=== PATIENT | male | born 1955 | race Caucasian/White ===

== ENCOUNTER 2016-04-17 11:09 | Emergency (ER) | payer BC ==
[2016-04-17 11:14] VITALS: TEMP 97.6; BMI 43.9
[2016-04-17] MEDS ORDERED: SODIUM CHLORIDE 0.9% 3 ML FLUSH FLUSH PRN (12:03)
[2016-04-17] MEDS ORDERED: NS 1,000 ML IV ONE ×2 (12:04)
[2016-04-17] MEDS ORDERED: ONDANSETRON HCL 4 MG/2 ML VIAL IV ONE (12:04)
[2016-04-17] MEDS ORDERED: FENTANYL 100 MCG/2 ML VIAL IV ONE ×2 (12:04→12:50)
--- NOTE | 2016-04-17 12:07 | EDPRACDOC ---
- General Information Chief Complaint: Abdominal Pain Stated Complaint: ABDOMINAL PAIN Time Seen by Provider: 04/17/16 11:55 Information Source: Patient Mode Of Arrival: Car Home Medications: Home Medications Paroxetine [Paxil] 30 mg PO BID 03/25/12 Ramipril [Altace] 10 mg PO BID 03/25/12 Metformin HCl 1,000 mg PO BID 06/13/15 Albuterol Sulfate [Ventolin Hfa] 1 - 2 puff INH Q4H PRN 04/17/16 Dicyclomine HCl [Bentyl] 20 mg PO Q6H #20 tablet 04/17/16 Ketoprofen 75 mg PO TID #30 capsule 04/17/16 Ondansetron [Zofran Odt] 4 mg PO Q6H #20 tab.rapdis 04/17/16 Oxycodone HCl/Acetaminophen [Percocet 10-325 mg Tablet] 1 each PO Q4H PRN Allergies/Adverse Reactions: Allergies Allergy/AdvReac Type Severity Reaction Status Date / Time morphine Allergy Mild Itching Verified 04/17/16 11:11 - History of Present Illness Onset: yesterday HPI: PT PRESENTS TO ED WITH GENERALIZED ABD PAIN FEELS TIGHT AND IS HURTING MORE THAN NORMAL. STATES HAS HAD MULTIPLE SURGERIES SINCE 2000 AFTER HAVING COLON CANCER WITH PARTIAL REMOVAL THEN COLOSTOMY, 1 YEAR LATER COLOSTOMY TAKEDOWN THEN HAD HERNIA WITH MESH PLACED AND HAD MULTIPLE COMPLICATIONS AND HAD MESH REMOVED AT [place]. PT STATES NO BM SINCE YESTERDAY AND NORMALLY GOES 8-15TIMES PER DAY. Pain Location: Reports: Diffuse Pain Context: Reports: Spontaneous Pain Severity: Moderate Pain Quality: Reports: Aching, Sharp, Stabbing Pain Radiation: Reports: No Radiation Adult Abdominal History: Reports: Abdominal Surgery, Bowel Obstruction Modifying Factors: improves with: Movement Associated Signs & Symptoms: Reports: Nausea, Other (DECREASED BOWEL MOVEMENT) Oral Intake: Decreased Urinary Output: Normal ED Past Medical History - History Reviewed Yes Nurses notes reviewed and agree except as marked Travel Outside of [place] in the Last 3 Months?: No - Patient Medical History Cardiac History: Reports: Hypertension, Cardiac Catheterization (2002), Hypercholesterolemia Respiratory History: Reports: COPD GI/ History: Reports: Kidney (Renal Surgery), Kidney Stones, Gastroesophageal Reflux, Ulcer (gastric) Psychological History: Reports: Anxiety. Denies: Depression, Substance Use Disorder Systemic History: Reports: Cancer (COLON CANCER), Anemia (iron defic.), Diabetes Additional Past Medical History: CHRONIC PAIN Surgical History: Reports: Cholecystectomy, Cardiac Catheterization (2002), Hernia Surgery (repaire incisional hernia, infected mesh resected and repaired) , Tonsillectomy/Adnoidectomy, Other (COLON RSXN, COLOSTOMY AND TAKE DOWN, MULT ABD SX, KNEE SX) Date of Last Radiation Treatment: NA Date of Last Chemotherapy Date: 2001 - Family Medical History Reports: Hypertension (father), Diabetes (father), Cancer (BREAST cancer in mother, sister- ovarian cancer.), Respiratory Disorders (COPD/asbestosis-Dad) - Social Medical History Smoking Status: Heavy tobacco smoker (5 or more cigarettes/day or daily pipe/ cigar) Social History: Denies: Substance Use Disorder ETOH: None Substance Abuse: None Lives With: Other Lives In: Home EDM Review of Systems - Review of Systems ROS Negative Except as Marked: Yes All systems reviewed and were negative except as marked Constitutional: No Symptoms Reported. negative: Fever, Chills, Weakness, Fatigue, Loss of Appetite Eyes: No Symptoms Reported. negative: Redness, Blurred Vision, Double Vision, Discharge, Pain, Light Sensitive, Photophobia Ears: No Symptoms Reported. negative: Pain, Hearing Loss, Drainage, Ear Pulling Throat: No Symptoms Reported. negative: Pain, Swelling Nose: No Symptoms Reported. negative: Congestion, Bleeding, Discharge, Injection, Swelling, Deformity, Ecchymosis, Tender, Abrasion, Laceration Mouth: No Symptoms Reported. negative: Pain, Drooling Respiratory: No Symptoms Reported. negative: Cough, Brassy Cough, Barky Cough, Shortness of Breath, Wheezing, Hemoptysis Cardiovascular: No Symptoms Reported. negative: Chest Pain, Palpitations, Syncope, Edema, Orthopnea, PND, Skin Mottling, Cyanosis Gastrointestinal: Constipation, Nausea, Pain, Other (NO BM SINCE YESTERDAY). negative: Diarrhea, Formula Intolerance, Melena, Vomiting Genitourinary: No Symptoms Reported. negative: Dysuria, Hematuria, Frequency, Discharge, Bleeding, Testicular Pain, Neurological: No Symptoms Reported. negative: Headache, Dizziness, Seizure, Numbness, Weakness, Speech Difficulty, Gait Difficulty Musculoskeletal: No Symptoms Reported. negative: Neck, Chestwall, Ribs, Back, Shoulder, Arm, Elbow, Forearm, Wrist, Hand, Pelvis, Hip, Femur, Knee, Leg, Ankle , Foot Integumentary: No Symptoms Reported. negative: Itching, Rash, Bruising, Wound Allergic/Immunologic: No Symptoms Reported. negative: Hives, Itching Hematologic: No Symptoms Reported. negative: Lymphadenopathy, Easy Bruising, Easy Bleeding Endocrine: No Symptoms Reported. negative: Weight Gain, Weight Loss Psychiatric: No Symptoms Reported. negative: Anxiety, Depression, Hallucinations, Insomnia, Suicidal - Physical Exam Constitutional: Alert (Awake), No apparent distress Oriented to: Time, Person, Place Last recorded Vital Signs: Last Vital Signs Temp 97.6 F 04/17/16 11:11 Pulse 61 04/17/16 12:13 Resp 18 04/17/16 12:13 BP 139/75 04/17/16 12:13 Pulse Ox 92 04/17/16 12:24 Oxygen Pulse Oxygen Saturation 92 O2 Device Nasal Cannula Oxygen Flow Rate 2 Fraction of Inspired Oxygen ( FIO2) - HEENT Head: Normal ( normocephalic) Eye Exam: Normal (PERRL, EOMI, Sclera white) Oropharynx: Normal (Pharynx:Moist without exudate,Gums-no swelling) Tympanic Membrane: Normal ENT EAC: Normal TMJ: Normal Nose: No Symptoms Reported (septum midline) Neck: Normal (FROM, trachea at midline) - Respiratory/Cardiovascular Respiratory: Normal - CTA (BBS clear to auscultation without adventitious sounds ) Cardiovascular: Normal (RRR without murmur, gallop or rub) - GI Auscultation: Increased (LLQ) Palpation: Normal (Soft,No rebound or guarding, non distended) Tenderness: Diffuse, Mild, Moderate Mishra's Sign: Negative - Bladder: Normal - Musculoskeletal Back: Normal (Non-Tender) Extremities: Normal (Normal tone, Pulses 2+ No cyanosis or edema, FROM) - Integumentary Skin: Normal, Warm, Dry Lymphatics: Normal (no adenopathy) - Neurologic Memory Impaired: Normal Motor Function: Normal (Normal tone, Pulses 2+ No cyanosis or edema, FROM) Cranial Nerve: Normal (CN II-X11 intact sensation, strength 5/5) Cerebellar: Normal Mood Description: Normal Perception: Normal - Differential Diagnosis Bowel Obstruction, Constipation, Diverticulitis, Pancreatitis, Other (CHRONIC ABDOMINAL PAIN) - Results 04/17/16 11:55 04/17/16 11:55 WBC 12.1 xk/uL (3.8-10.8) H 04/17/16 11:55 RBC 5.83 xM/uL (4.70-6.10) 04/17/16 11:55 Hgb 15.6 g/dL (14.0-18.0) 04/17/16 11:55 Hct 47.2 % (42-52) 04/17/16 11:55 MCV 81 fL (80-94) 04/17/16 11:55 MCH 26.7 pg (27-32) L 04/17/16 11:55 MCHC 33.0 g/dl (33-36) 04/17/16 11:55 RDW 17.8 % (11.5-14.5) H 04/17/16 11:55 Plt Count 250 xk/uL (130-400) 04/17/16 11:55 MPV 7.9 fL (7.4-10.4) 04/17/16 11:55 Neut % (Auto) 69.5 % (45-76) 04/17/16 11:55 Lymph % (Auto) 22.3 % (17-44) 04/17/16 11:55 [place] % (Auto) 7.1 % (3-10) 04/17/16 11:55 Eos % (Auto) 0.7 % (0-5) 04/17/16 11:55 Baso % (Auto) 0.4 % (0-2) 04/17/16 11:55 Absolute Neuts (auto) 8.35 xk/uL (1.7-8.2) H 04/17/16 11:55 Absolute Lymphs (auto) 2.66 xk/uL (0.65-4.75) 04/17/16 11:55 Sodium 139 mEq/L (137-146) 04/17/16 11:55 Potassium 3.9 mEq/L (3.5-5.1) 04/17/16 11:55 Chloride 101 mEq/L (98-107) 04/17/16 11:55 Carbon Dioxide 27 mMOL/L (22-33) 04/17/16 11:55 Anion Gap 15 mEq/L (8-16) 04/17/16 11:55 BUN 13 MG/DL (9-20) 04/17/16 11:55 Creatinine 0.70 MG/DL (0.66-1.25) 04/17/16 11:55 Estimated GFR (MDRD) > 60 mL/min (>=60) 04/17/16 11:55 Glucose 205 mg/dL (70-99) H 04/17/16 11:55 Calculated Osmolality 274 MOs/Kg (270-290) 04/17/16 11:55 Calcium 9.7 MG/DL (8.4-10.2) 04/17/16 11:55 Total Bilirubin 1.6 MG/DL (0.2-1.3) H 04/17/16 11:55 AST 72 IU/L (17-59) H 04/17/16 11:55 ALT 62 IU/L (21-72) 04/17/16 11:55 Alkaline Phosphatase 78 IU/L (50-160) 04/17/16 11:55 Total Protein 7.9 G/DL (6.3-8.2) 04/17/16 11:55 Albumin 4.5 G/DL (3.5-5.0) 04/17/16 11:55 Lipase 68 U/L (23-300) 04/17/16 11:55 Urine Color Yellow 04/17/16 13:25 Urine Clarity Clear 04/17/16 13:25 Urine pH 5.0 (5.0-8.0) 04/17/16 13:25 Ur Specific [place] 1.025 (1.003-1.035) 04/17/16 13:25 Urine Protein 1+ (NEG/TRACE) H 04/17/16 13:25 Urine Glucose (UA) 1+ (NEGATIVE) 04/17/16 13:25 Urine Ketones Neg (NEGATIVE) 04/17/16 13:25 Urine Occult Blood Neg (NEG/TRACE) 04/17/16 13:25 Urine Nitrite Neg (NEGATIVE) 04/17/16 13:25 Urine Bilirubin Neg (NEGATIVE) 04/17/16 13:25 Urine Urobilinogen <2.0 MG/DL (0-1) 04/17/16 13:25 Ur Leukocyte Esterase Neg (NEGATIVE) 04/17/16 13:25 Urine RBC 0-2 (0-2) 04/17/16 13:25 Urine WBC 0-2 (0-2) 04/17/16 13:25 Ur Epithelial Cells Occ 04/17/16 13:25 Amorphous Sediment Occ 04/17/16 13:25 Urine Bacteria Few (NEG/FEW) 04/17/16 13:25 Hyaline Casts 5-10 (0-2) H 04/17/16 13:25 Urine Mucus Large (NEG/OCC) 04/17/16 13:25 Lab Results 04/17/16 04/17/16 04/17/16 13:25 11:55 11:55 WBC 12.1 H RBC 5.83 Hgb 15.6 Hct 47.2 MCV 81 MCH 26.7 L MCHC 33.0 RDW 17.8 H Plt Count 250 MPV 7.9 Neut % (Auto) 69.5 Lymph % (Auto) 22.3 [place] % (Auto) 7.1 Eos % (Auto) 0.7 Baso % (Auto) 0.4 Absolute Neuts (auto) 8.35 H Absolute Lymphs (auto) 2.66 Sodium 139 Potassium 3.9 Chloride 101 Carbon Dioxide 27 Anion Gap 15 BUN 13 Creatinine 0.70 Estimated GFR (MDRD) > 60 Glucose 205 H Calculated Osmolality 274 Calcium 9.7 Total Bilirubin 1.6 H AST 72 H ALT 62 Alkaline Phosphatase 78 Total Protein 7.9 Albumin 4.5 Lipase 68 Urine Color Yellow Urine Clarity Clear Urine pH 5.0 Ur Specific [place] 1.025 Urine Protein 1+ H Urine Glucose (UA) 1+ Urine Ketones Neg Urine Occult Blood Neg Urine Nitrite Neg Urine Bilirubin Neg Urine Urobilinogen <2.0 Ur Leukocyte Esterase Neg Urine RBC 0-2 Urine WBC 0-2 Ur Epithelial Cells Occ Amorphous Sediment Occ Urine Bacteria Few Hyaline Casts 5-10 H Urine Mucus Large - Diagnostic Imaging CT ABD/PEL Image interpreted by: Radiologist 04/17/16 14:35 Final Report CLINICAL DATA: Abdominal pain with nausea for 1 day. History of small bowel obstruction. History of previous appendectomy, cholecystectomy and colon resection. History of colon cancer in 2000. EXAM: CT ABDOMEN AND PELVIS WITH CONTRAST TECHNIQUE: Multidetector CT imaging of the abdomen and pelvis was performed using the standard protocol following bolus administration of intravenous contrast. CONTRAST: 100 mL of Isovue 370 intravenous contrast COMPARISON: 12/20/2015 FINDINGS: Lung bases: Heart is top-normal size. The prominent posterior subpleural fat. Mild subsegmental atelectasis at the dependent lung bases. Liver: Multiple low-density liver lesions. Two largest lying in the anterior left lobe, the largest measuring 2.3 cm having near water attenuation, consistent with cysts. Other sub cm lesions may also reflect cysts but are nonspecific. These are stable from the prior exam. No new liver abnormalities. Gallbladder surgically absent. There is chronic dilation of common bile duct with maximum 16 mm with distal tapering. This is stable. Spleen and pancreas: Unremarkable. Adrenal glands: 18 mm relatively hyper attenuating right adrenal mass without significant change from the prior study. Normal left adrenal gland. Kidneys, ureters, bladder: Unremarkable. Lymph nodes: No pathologically enlarged lymph nodes. Ascites: None. Abdominal wall: Wide diastases of the rectus abdominus muscles. The anterior peritoneal and and underlying bowel protrudes between the rectus abdominus muscles, with no convincing hernia to the fascia. This is similar to the prior study. Gastrointestinal: Postsurgical changes are stable. There are small bowel anastomosis donte in the central abdomen. An anastomosis between the distal small bowel and remaining distal colon is seen in the lower central abdomen. There is no evidence of bowel obstruction. There is no bowel wall thickening or inflammatory changes. Musculoskeletal: Degenerative changes noted throughout the visualized spine. No osteoblastic or osteolytic lesions. The IMPRESSION: 1. No acute findings within the abdomen pelvis. 2. Multiple bowel anastomosis donte are noted. Remaining distal colon connects with the distal small bowel in the low central abdomen. There is no evidence of bowel obstruction or inflammation. The appearance is similar to the prior exam. 3. Wide diastases of the rectus abdominus muscles. The overlying fascia/hernia mesh appears intact. 4. Multiple small low-density liver lesions similar to the prior study. These were also present on a more remote exam from January 2014. These are therefore presumed to reflect benign cysts. 5. Stable chronic dilation of common bile duct. 6. Benign right adrenal mass, also stable since 2014 exam. Decision Time to Discharge: 14:35 - Departure Disposition: Home Condition: Stable Final Diagnosis: Abdominal pain Instructions: Acute Abdominal Pain (ED) Education/Counseling Given To: Patient Education/Counseling Given Regarding: Diagnosis, Treatment, Prognosis, Follow Up Referrals: Dashawn Morrissey MD [Primary Care Provider] - One Week Prescriptions: New Dicyclomine HCl [Bentyl] 20 mg PO Q6H #20 tablet Ketoprofen 75 mg PO TID #30 capsule Ondansetron [Zofran Odt] 4 mg PO Q6H #20 tab.rapdis No Action Ramipril [Altace] 10 mg PO BID Paroxetine [Paxil] 30 mg PO BID Metformin HCl 1,000 mg PO BID Oxycodone HCl/Acetaminophen [Percocet 10-325 mg Tablet] 1 each PO Q4H PRN PRN Reason: Pain Albuterol Sulfate [Ventolin Hfa] 1 - 2 puff INH Q4H PRN PRN Reason: SHORTNESS OF BREATH Additional Instructions: FOLLOW UP WITH YOUR DOCTOR IF SYMPTOMS PERSIST, RETURN FOR WORSE OR DIFFERENT SYMPTOMS.
[2016-04-17 12:40] LABS: AUTOMATED BASOPHIL 0.4 % (0-2); AUTOMATED EOSINOPHIL 0.7 % (0-5); AUTOMATED LYMPH 22.3 % (17-44); AUTOMATED MONOCYTE 7.1 % (3-10); AUTOMATED NEUTROPHIL 69.5 % (45-76); MPV 7.9 fL (7.4-10.4)
[2016-04-17] MEDS ORDERED: FENTANYL 100 MCG/2 ML VIAL IV PRN (12:50)
[2016-04-17] MEDS ORDERED: HYDROmorphone 1 MG INJECTION IV PRN (12:55)
[2016-04-17] MEDS ORDERED: HYDROmorphone 1 MG INJECTION IV ONE (12:55)
[2016-04-17 12:56] LABS: BLOOD UREA NITROGEN 13 MG/DL (9-20); CALCIUM 9.7 MG/DL (8.4-10.2); CALCULATED OSMOLALITY 274 MOs/Kg (270-290); CHLORIDE 101 mEq/L (98-107); GLUCOSE 205 mg/dL (70-99); SODIUM LEVEL 139 mEq/L (137-146); TOTAL PROTEIN 7.9 G/DL (6.3-8.2)
[2016-04-17] MEDS ORDERED: Pharmacy Review for Metformin - IV Contrast Given SCH (13:00)
[2016-04-17 13:43] LABS: AMORPHOUS OCC; LEUKOCYTES/URINE NEG (NEGATIVE); NITRITE/URINE NEG (NEGATIVE); RBC/URINE 0-2 (0-2); URINE OCCULT BLOOD NEG (NEG/TRACE); WBC/URINE 0-2 (0-2)
--- NOTE | 2016-04-17 14:24 | DIRPT ---
CLINICAL DATA: Abdominal pain with nausea for 1 day. History of small bowel obstruction. History of previous appendectomy, cholecystectomy and colon resection. History of colon cancer in 2000. EXAM: CT ABDOMEN AND PELVIS WITH CONTRAST TECHNIQUE: Multidetector CT imaging of the abdomen and pelvis was performed using the standard protocol following bolus administration of intravenous contrast. CONTRAST: 100 mL of Isovue 370 intravenous contrast COMPARISON: 12/20/2015 FINDINGS: Lung bases: Heart is top-normal size. The prominent posterior subpleural fat. Mild subsegmental atelectasis at the dependent lung bases. Liver: Multiple low-density liver lesions. Two largest lying in the anterior left lobe, the largest measuring 2.3 cm having near water attenuation, consistent with cysts. Other sub cm lesions may also reflect cysts but are nonspecific. These are stable from the prior exam. No new liver abnormalities. Gallbladder surgically absent. There is chronic dilation of common bile duct with maximum 16 mm with distal tapering. This is stable. Spleen and pancreas: Unremarkable. Adrenal glands: 18 mm relatively hyper attenuating right adrenal mass without significant change from the prior study. Normal left adrenal gland. Kidneys, ureters, bladder: Unremarkable. Lymph nodes: No pathologically enlarged lymph nodes. Ascites: None. Abdominal wall: Wide diastases of the rectus abdominus muscles. The anterior peritoneal and and underlying bowel protrudes between the rectus abdominus muscles, with no convincing hernia to the fascia. This is similar to the prior study. Gastrointestinal: Postsurgical changes are stable. There are small bowel anastomosis donte in the central abdomen. An anastomosis between the distal small bowel and remaining distal colon is seen in the lower central abdomen. There is no evidence of bowel obstruction. There is no bowel wall thickening or inflammatory changes. Musculoskeletal: Degenerative changes noted throughout the visualized spine. No osteoblastic or osteolytic lesions. The IMPRESSION: 1. No acute findings within the abdomen pelvis. 2. Multiple bowel anastomosis donte are noted. Remaining distal colon connects with the distal small bowel in the low central abdomen. There is no evidence of bowel obstruction or inflammation. The appearance is similar to the prior exam. 3. Wide diastases of the rectus abdominus muscles. The overlying fascia/hernia mesh appears intact. 4. Multiple small low-density liver lesions similar to the prior study. These were also present on a more remote exam from January 2014. These are therefore presumed to reflect benign cysts. 5. Stable chronic dilation of common bile duct. 6. Benign right adrenal mass, also stable since 2014 exam. Electronically Signed By: Kaiden Weir M.D. On: 04/17/2016 14:21
[2016-04-17 15:13] VITALS: BP 142/68; PULSE 77
[2016-04-17] MEDS ORDERED: SODIUM CHLORIDE 0.9% 3 ML FLUSH FLUSH SCH (18:00)
== END 2016-04-17 15:07 | disposition home or self-care (01) ==
LOC: ED 11:09
DX: R10.9 Unspecified abdominal pain (principal)
CPT/HCPCS: 36415; 74177; 80053; 81001; 83690; 85025; 96361; 96374; 96375; 96376; 99284; A9698; J1170; J2405; J3010

== ENCOUNTER 2016-04-19 08:50 | Emergency (ER) | payer BC ==
[2016-04-19 09:07] VITALS: BMI 43.9
--- NOTE | 2016-04-19 09:17 | EDPRACDOC ---
- General Information Chief Complaint: Abdominal Pain Stated Complaint: ABD PAIN Time Seen by Provider: 04/19/16 09:14 Mode Of Arrival: Car Home Medications: Home Medications Paroxetine [Paxil] 30 mg PO BID 03/25/12 Ramipril [Altace] 10 mg PO BID 03/25/12 Metformin HCl 1,000 mg PO BID 06/13/15 Albuterol Sulfate [Ventolin Hfa] 1 - 2 puff INH Q4H PRN 04/17/16 Dicyclomine HCl [Bentyl] 20 mg PO Q6H #20 tablet 04/17/16 Ketoprofen 75 mg PO TID #30 capsule 04/17/16 Ondansetron [Zofran Odt] 4 mg PO Q6H #20 tab.rapdis 04/17/16 Oxycodone HCl/Acetaminophen [Percocet 10-325 mg Tablet] 1 each PO Q4H PRN Allergies/Adverse Reactions: Allergies Allergy/AdvReac Type Severity Reaction Status Date / Time morphine Allergy Mild Itching Verified 04/19/16 09:08 - History of Present Illness Onset: THU HPI: PT WITH CHRONIC ABDOMINAL PAIN, THIS EPISODE PRESENT SINCE THURSDAY. NAUSEA, NO VOMITING. ABD DISTENSION. LAST BM YESTERDAY. PAIN /10. SAME PAIN WHEN SEEN IN ED THURSDAY. EPIGASTRIC. NORMALLY PAIN FROM ABD IS LOWER. HAS NEW PAIN MANAGEMENT DOC. CHANGED MEDS FROM 125 MCG FENTANYL PATCHES TO SUBOXONE. Adult Abdominal History: Reports: Bowel Obstruction ED Past Medical History - History Reviewed Yes Nurses notes reviewed and agree except as marked - Patient Medical History Cardiac History: Reports: Hypertension, Cardiac Catheterization (2002), Hypercholesterolemia Respiratory History: Reports: COPD GI/ History: Reports: Kidney (Renal Surgery), Kidney Stones, Gastroesophageal Reflux, Ulcer (gastric) Psychological History: Reports: Anxiety. Denies: Depression, Substance Use Disorder Systemic History: Reports: Cancer (COLON CANCER), Anemia (iron defic.), Diabetes Additional Past Medical History: CHRONIC PAIN Surgical History: Reports: Cholecystectomy, Cardiac Catheterization (2002), Hernia Surgery (repaire incisional hernia, infected mesh resected and repaired) , Tonsillectomy/Adnoidectomy, Other (COLON RSXN, COLOSTOMY AND TAKE DOWN, MULT ABD SX, KNEE SX) Date of Last Radiation Treatment: NA Date of Last Chemotherapy Date: 2001 - Family Medical History Reports: Hypertension (father), Diabetes (father), Cancer (BREAST cancer in mother, sister- ovarian cancer.), Respiratory Disorders (COPD/asbestosis-Dad) - Social Medical History Smoking Status: Heavy tobacco smoker (5 or more cigarettes/day or daily pipe/ cigar) Social History: Denies: Substance Use Disorder EDM Review of Systems - Review of Systems ROS Negative Except as Marked: Yes All systems reviewed and were negative except as marked - Physical Exam Constitutional: Alert (Awake), No apparent distress Oriented to: Time, Person, Place Last recorded Vital Signs: Last Vital Signs Temp 98.6 F 04/19/16 10:09 Pulse 50 L 04/19/16 10:32 Resp 20 04/19/16 10:32 BP 135/70 04/19/16 10:32 Pulse Ox 91 04/19/16 10:32 Oxygen Pulse Oxygen Saturation 91 O2 Device Room Air Oxygen Flow Rate Fraction of Inspired Oxygen ( FIO2) - HEENT Head: Normal ( normocephalic) Eye Exam: Normal (PERRL, EOMI, Sclera white) Oropharynx: Normal (Pharynx:Moist without exudate,Gums-no swelling) Nose: No Symptoms Reported (septum midline) Neck: Normal (FROM, trachea at midline) - Respiratory/Cardiovascular Respiratory: Normal - CTA (BBS clear to auscultation without adventitious sounds ) Cardiovascular: Normal (RRR without murmur, gallop or rub) - GI Auscultation: Normal (NABS) Palpation: Normal (Soft,No rebound or guarding,) Tenderness: Diffuse, Mild Mishra's Sign: Negative - Musculoskeletal Back: Normal (Non-Tender) Extremities: Normal (Normal tone, Pulses 2+ No cyanosis or edema, FROM) - Integumentary Skin: Normal, Warm, Dry Lymphatics: Normal (no adenopathy) - Neurologic Memory Impaired: Normal Motor Function: Normal (Normal tone, Pulses 2+ No cyanosis or edema, FROM) Cranial Nerve: Normal (CN II-X11 intact sensation, strength 5/5) Cerebellar: Normal Mood Description: Normal Perception: Normal - EKG EKG #1 EKG Time: 10:31 -: Yes EKG interpreted by me Rate: bpm: 49 [place]: Normal Rhythm: SB Block: RBBB (INCOMPLETE) Hypertrophy: None ST: Normal Comments: NORMAL EKG - Additional Information PT DEVELOPED CHEST PAIN. EKG PERFORMED AND ASPIRIN GIVEN. - Departure Yes I personally saw and evaluated the patient. Disposition: Home Condition: Stable Final Diagnosis: ACUTE ON CHRONIC ABDOMINAL PAIN, Abdominal pain, acute, generalized Instructions: Non-pharmacological Pain Management Therapies for Adults (GEN), Abdominal Pain (ED) Education/Counseling Given To: Patient Education/Counseling Given Regarding: Diagnosis Referrals: None,No Provider [Primary Care Provider] - One Week Prescriptions: No Action Ramipril [Altace] 10 mg PO BID Paroxetine [Paxil] 30 mg PO BID Metformin HCl 1,000 mg PO BID Oxycodone HCl/Acetaminophen [Percocet 10-325 mg Tablet] 1 each PO Q4H PRN PRN Reason: Pain Albuterol Sulfate [Ventolin Hfa] 1 - 2 puff INH Q4H PRN PRN Reason: SHORTNESS OF BREATH Dicyclomine HCl [Bentyl] 20 mg PO Q6H #20 tablet Ketoprofen 75 mg PO TID #30 capsule Ondansetron [Zofran Odt] 4 mg PO Q6H #20 tab.[email or web address]
[2016-04-19] MEDS: HYDROmorphone 1 MG INJECTION IM ONE ×2 (09:31→09:39)
[2016-04-19 10:11] VITALS: TEMP 98.6
[2016-04-19] MEDS ORDERED: ASPIRIN (CHEWABLE) 81 MG TAB PO ONE (10:21)
[2016-04-19 10:35] VITALS: BP 135/70; PULSE 50
[2016-04-19] MEDS ORDERED: HYDROmorphone 1 MG INJECTION IM ONE (11:13)
== END 2016-04-19 12:05 | disposition home or self-care (01) ==
LOC: ED 08:50
DX: R10.9 Unspecified abdominal pain (principal); G89.29 Other chronic pain
CPT/HCPCS: 93005; 96372; 99283; J1170; J3490

== ENCOUNTER 2016-04-23 15:03 | Emergency (ER) | payer BC ==
[2016-04-23 15:03] VITALS: BMI 43.9
[2016-04-23 15:07] VITALS: TEMP 98.3
[2016-04-23] MEDS ORDERED: HYDROmorphone 1 MG INJECTION IV ONE ×2 (15:47→17:22)
[2016-04-23] MEDS ORDERED: NS 1,000 ML IV ONE (15:47)
[2016-04-23] MEDS ORDERED: CIPROFLOXACIN HCL 500 MG TAB PO ONE (15:49)
[2016-04-23] MEDS ORDERED: Metronidazole 500 mg/100 ml 500 MG/100 ML RTU IV ONE (15:49)
--- NOTE | 2016-04-23 17:20 | EDPRACDOC ---
- General Information Chief Complaint: Abdominal Pain Stated Complaint: ABD PAIN Time Seen by Provider: 04/23/16 15:11 Information Source: Patient Mode Of Arrival: Car Home Medications: Home Medications Paroxetine [Paxil] 30 mg PO BID 03/25/12 Ramipril [Altace] 10 mg PO BID 03/25/12 Metformin HCl 1,000 mg PO BID 06/13/15 Albuterol Sulfate [Ventolin Hfa] 1 - 2 puff INH Q4H PRN 04/17/16 Ondansetron [Zofran Odt] 4 mg PO Q6H #20 tab.rapdis 04/17/16 Ciprofloxacin HCl [Cipro] 500 mg PO BID 04/23/16 Metronidazole [Flagyl] 500 mg PO BID 04/23/16 Allergies/Adverse Reactions: Allergies Allergy/AdvReac Type Severity Reaction Status Date / Time morphine Allergy Mild Itching Verified 04/23/16 15:07 - History of Present Illness Onset: 1 day HPI: PT PRESENTS WITH PERSISTENT ABDOMINAL PAIN. PT HAS BEEN SEEN AT THIS FACILITY 3 TIMES IN THE PAST WEEK. STATES HE WAS SEEN AT [facility] ON THURSDAY AND DX WITH A BACTERIAL INFECTION, GIVEN ANTIBIOTICS. STATES HE IS CONTINUING TO HAVE PAIN. PT HAS LONG ABDOMINAL PAIN HISTORY Pain Location: Reports: RUQ, LUQ Pain Context: Reports: Spontaneous Pain Severity: Moderate Pain Quality: Reports: Sharp, Stabbing Pain Radiation: Reports: No Radiation Adult Abdominal History: Reports: Bowel Obstruction Modifying Factors: improves with: Nothing Associated Signs & Symptoms: Reports: Nausea Oral Intake: Normal Urinary Output: Normal ED Past Medical History - History Reviewed Yes Nurses notes reviewed and agree except as marked - Patient Medical History Cardiac History: Reports: Hypertension, Cardiac Catheterization (2002), Hypercholesterolemia Respiratory History: Reports: COPD GI/ History: Reports: Kidney (Renal Surgery), Kidney Stones, Gastroesophageal Reflux, Ulcer (gastric) Psychological History: Reports: Anxiety. Denies: Depression, Substance Use Disorder Systemic History: Reports: Cancer (COLON CANCER), Anemia (iron defic.), Diabetes Additional Past Medical History: CHRONIC PAIN Surgical History: Reports: Cholecystectomy, Cardiac Catheterization (2002), Hernia Surgery (repaire incisional hernia, infected mesh resected and repaired) , Tonsillectomy/Adnoidectomy, Other (COLON RSXN, COLOSTOMY AND TAKE DOWN, MULT ABD SX, KNEE SX) Date of Last Radiation Treatment: NA Date of Last Chemotherapy Date: 2001 - Family Medical History Reports: Hypertension (father), Diabetes (father), Cancer (BREAST cancer in mother, sister- ovarian cancer.), Respiratory Disorders (COPD/asbestosis-Dad) - Social Medical History Smoking Status: Heavy tobacco smoker (5 or more cigarettes/day or daily pipe/ cigar) Social History: Denies: Other Substance Use EDM Review of Systems - Review of Systems ROS Negative Except as Marked: Yes All systems reviewed and were negative except as marked - Physical Exam Constitutional: Alert Oriented to: Time, Person, Place Last recorded Vital Signs: Last Vital Signs Temp 98.3 F 04/23/16 15:04 Pulse 64 04/23/16 16:48 Resp 20 04/23/16 16:48 BP 168/90 04/23/16 16:48 Pulse Ox 93 04/23/16 16:48 Oxygen Pulse Oxygen Saturation 93 O2 Device Room Air Oxygen Flow Rate Fraction of Inspired Oxygen ( FIO2) - HEENT Head: Normal ( normocephalic) Eye Exam: Normal (PERRL, EOMI, Sclera white) Oropharynx: Normal (Pharynx:Moist without exudate,Gums-no swelling) Nose: No Symptoms Reported (septum midline) Neck: Normal (FROM, trachea at midline) - Respiratory/Cardiovascular Respiratory: Normal - CTA (BBS clear to auscultation without adventitious sounds ) Cardiovascular: Normal (RRR without murmur, gallop or rub) - GI Auscultation: Normal (NABS) Palpation: Tense Tenderness: Moderate, RUQ, LUQ Mishra's Sign: Negative Rectal Exam: Deferred - Musculoskeletal Back: Normal (Non-Tender) Extremities: Normal (Normal tone, Pulses 2+ No cyanosis or edema, FROM) - Integumentary Skin: Normal, Warm, Dry Lymphatics: Normal (no adenopathy) - Neurologic Memory Impaired: Normal Motor Function: Normal (Normal tone, Pulses 2+ No cyanosis or edema, FROM) Cranial Nerve: Normal (CN II-X11 intact sensation, strength 5/5) Cerebellar: Normal Mood Description: Normal Perception: Normal - Differential Diagnosis Other Decision Time to Discharge: 17:21 - Departure Disposition: Home Condition: Stable Final Diagnosis: Abdominal pain Instructions: Acute Abdominal Pain (ED) Education/Counseling Given To: Patient Education/Counseling Given Regarding: Diagnosis, Treatment, Prognosis, Follow Up Referrals: Grisso,Dashawn A, MD [Primary Care Provider] - One Week Prescriptions: No Action Ramipril [Altace] 10 mg PO BID Paroxetine [Paxil] 30 mg PO BID Metformin HCl 1,000 mg PO BID Albuterol Sulfate [Ventolin Hfa] 1 - 2 puff INH Q4H PRN PRN Reason: SHORTNESS OF BREATH Ondansetron [Zofran Odt] 4 mg PO Q6H #20 tab.rapdis Metronidazole [Flagyl] 500 mg PO BID Ciprofloxacin HCl [Cipro] 500 mg PO BID Additional Instructions: TAKE ALL OF YOUR ANTIBIOTICS PRESCRIBED. RETURN TO THE ED FOR WORSENING SYMPTOMS OR CONCERNS
[2016-04-23 18:12] VITALS: BP 174/94; PULSE 62
== END 2016-04-23 18:16 | disposition home or self-care (01) ==
LOC: ED 15:03
DX: R10.9 Unspecified abdominal pain (principal)
CPT/HCPCS: 96361; 96365; 96375; 96376; 99284; J1170; J3490